=== PATIENT | male | born 1985 | race Caucasian/White ===

== ENCOUNTER 2017-09-05 09:16 | Day surgery (SDC) | payer BC ==
[~2017-09-05 09:16] MED LIST: Buffered Lidocaine 0.9% SYRIN* 5 ML/SYR SYRINGE INTRADERM ONE
[2017-09-05] MEDS ORDERED: ceFAZolin 2 GM PREMIX (*) 2 GM/50 ML BAG IVPB ONE (09:32)
[2017-09-05] MEDS ORDERED: fentaNYL* 50 MCG/ML 2 ML VIAL (100 MCG VIAL) ONE (10:54)
[2017-09-05] MEDS ORDERED: Midazolam* 1 MG/ML 5 ML VIAL (5 MG) ONE (10:55)
[2017-09-05] MEDS ORDERED: Lidocaine 1% MPF wEPI 200,000* 30 ML SDV ONE (10:55)
[2017-09-05 12:02] VITALS: BP 113/68
== END 2017-09-05 12:02 | disposition home or self-care (01) ==
LOC: OREAST 09:16
PROVIDERS: ATTEND Plastic Surgery
DX: D17.9 Benign lipomatous neoplasm, unspecified (principal)
CPT/HCPCS: 88304; J0690; J2001; J2250; J3010

== ENCOUNTER 2017-11-16 11:43 | Emergency (ER) | payer BC ==
[2017-11-16 12:41] VITALS: BP 121/78
--- NOTE | 2017-11-16 14:06 | UC ---
Throat Pain/Nasal Godfrey HPI - HPI Summary HPI Summary: Patient presents to the with CC of sore throat, neck fullness and pain and feeling congested x 1 month. He endorses sick contacts. Family members with strep. He denies fevers, sweats or chills. He denies any other chest pain, SOB or N/V/C/D. Otherwise healthy. Takes no medications. - History of Current Complaint Chief Complaint: UCGeneralIllness Stated Complaint: S.T Time Seen by Provider: 11/16/17 12:50 Hx Obtained From: Patient Onset/Duration: Sudden Onset Severity: Moderate Pain Intensity: 5 Pain Scale Used: 0-10 Numeric Associated Signs & Symptoms: Positive: Dysphagia - Epiglottits Risk Factors Epiglottis Risk Factors: Negative - Allergies/Home Medications Allergies/Adverse Reactions: Allergies Allergy/AdvReac Type Severity Reaction Status Date / Time No Known Allergies Allergy Verified 11/16/17 12:41 Home Medications: Home Medications Ibuprofen TAB* [Advil TAB*] 600 mg PO Q6HR PRN 11/16/17 [History Confirmed 11/16] Psllnhvglwkyg-Inubcqdtro-Mzymc [VICKS DAYQUIL/NYQUIL COLD (Liquid)] 20 ml PO BEDTIME PRN 11/16/17 [History Confirmed 11/16/17] PMH/Surg Hx/FS Hx/Imm Hx Previously Healthy: Yes - Surgical History Surgical History: None Surgery Procedure, Year, and Place: Vasectomy 11/08/17; Cyst removed right forehead - Family History Known Family History: Positive: Unknown - Social History Occupation: Employed Full-time Alcohol Use: Occasionally Substance Use Type: None Smoking Status (MU): Never Smoked Tobacco - Immunization History Most Recent Influenza Vaccination: NOT UTD Review of Systems Constitutional: Negative Skin: Negative ENT: Sore Throat Respiratory: Negative Cardiovascular: Negative Motor: Negative Neurovascular: Negative Musculoskeletal: Negative Neurological: Negative Is Patient Immunocompromised?: No All Other Systems Reviewed And Are Negative: Yes Physical Exam Triage Information Reviewed: Yes Appearance: Well-Appearing, Well-Nourished Vital Signs: Initial Vital Signs Temp 98.5 F 11/16/17 12:37 Pulse 81 11/16/17 12:37 Resp 16 11/16/17 12:37 BP 121/78 11/16/17 12:37 Pulse Ox 100 12/30/17 12:37 Vital Signs Reviewed: Yes Eye Exam: Normal Eyes: Positive: Conjunctiva Clear ENT: Positive: Hearing grossly normal, Pharyngeal erythema, TMs normal, Tonsillar swelling, Tonsillar exudate, Uvula midline. Negative: Pharynx normal , Nasal congestion, Nasal drainage, TM bulging, TM dull, TM red, Trismus, Muffled voice, Hoarse voice, Dental tenderness, Sinus tenderness Neck exam: Normal Neck: Positive: Supple, Enlarged Nodes @ - cervical LN bilaterally Respiratory: Positive: Chest non-tender, Lungs clear Cardiovascular Exam: Normal Cardiovascular: Positive: RRR Musculoskeletal Exam: Normal Musculoskeletal: Positive: Strength Intact Neurological Exam: Normal Neurological: Positive: Alert Psychological: Positive: Normal Response To Family Skin Exam: Normal Throat Pain/Nasal Course/Dx - Course Course Of Treatment: Strep +. Patient is given penicillin. Encouraged tylenol for any fevers or aches. Precautions and return to activities given. - Differential Dx/Diagnosis Provider Diagnoses: Strep throat Discharge - Discharge Plan Condition: Stable Disposition: HOME Prescriptions: Penicillin VK 500 MG TAB(NF) [Penicillin VK 500 mg Tab(NF)] 500 mg PO BID #20 tab MDD 4 Patient Education Materials: Strep Throat (ED) Referrals: Dillan Ayala NP [Primary Care Provider] - Additional Instructions: Dx: Strep Throat You will need antibiotic medicine to treat your strep throat. Please take the antibiotic as directed. You should feel better within 2 to 3 days after you start antibiotics. You may return to work or school 24 hours after you start antibiotics. If you have any questions about your medications, please do no hesitate to call or talk with your pharmacist. How can I manage my symptoms? Use lozenges, ice, soft foods, or popsicles to soothe your throat. Drink juice, milk shakes, or soup if your throat is too sore to eat solid food. Drinking liquids can also help prevent dehydration. Gargle with salt water. Mix teaspoon salt in a 1 cup of warm water and gargle. This may help reduce swelling in your throat. Do not smoke. Nicotine and other chemicals in cigarettes and cigars can cause lung damage and make your symptoms worse. Ask your healthcare provider for information if you currently smoke and need help to quit. E-cigarettes or smokeless tobacco still contain nicotine. Talk to your healthcare provider before you use these products. How do I prevent the spread of strep throat? Wash your hands often. Use soap and water. Wash your hands after you use the bathroom, change a child's diapers, or sneeze. Wash your hands before you prepare or eat food. Do not share food or drinks. Replace your toothbrush after you have taken antibiotics for 24 hours.
== END 2017-11-16 13:25 | disposition home or self-care (01) ==
LOC: UCEAST 11:43
DX: J02.0 Streptococcal pharyngitis (principal)
CPT/HCPCS: 87651; 99212; G0463

== ENCOUNTER 2018-02-10 06:14 | Day surgery (SDC) | payer BC ==
--- NOTE | 2018-02-06 22:02 | HP ---
CC: VERENICE Jay * ADMITTING HISTORY AND PHYSICAL: DATE OF ADMISSION: 02/10/18 ADMITTING DIAGNOSIS: Left renal calculus. PLANNED PROCEDURE: Shockwave lithotripsy of left renal calculus. SURGEON: Trever Cruz MD HISTORY OF PRESENT ILLNESS: David Garcia is a 32-year-old gentleman who had been evaluated and noted on an ultrasound to have a 9 mm calculus in the lower pole of the left kidney. He desires treatment of the same and is now being bought in for shockwave lithotripsy of the left renal calculus. PAST MEDICAL HISTORY: Unremarkable. PAST SURGICAL HISTORY: Significant for removal of a lipoma from the forehead. MEDICATIONS ON ADMISSION: None. ALLERGIES: No known drug allergies. FAMILY HISTORY: Negative for stones. REVIEW OF SYSTEMS: He is otherwise in excellent health. There is no history of diabetes mellitus or any other major systemic illness. He denies any chest pain or shortness of breath. PHYSICAL EXAMINATION GENERAL: Reveals a pleasant healthy-appearing young gentleman. VITAL SIGNS: Blood pressure is 120/70, pulse 68 per minute, oxygen saturation 99% on room air. LUNGS: Clear bilaterally. CARDIOVASCULAR: Regular rate and rhythm. S1, S2. ABDOMEN: Soft without masses. IMPRESSION: A 32-year-old gentleman with a 9 mm calculus in the lower pole of the left kidney. I have discussed the procedure of shockwave lithotripsy in detail including possible risks of bleeding, infection, and obstructing fragment. PLAN: Shockwave lithotripsy of left renal calculus. [id number]/[facility] #: [id number] [facility]
[~2018-02-10 06:14] MED LIST changes: +Dexamethasone IV* 4 MG/ML 1 ML (4 MG) IV SLOW PU ONE; +Famotidine IV* 10 MG/ML 2 ML (20 mg) IV ONE
[2018-02-10] MEDS ORDERED: cefTRIAXone(*) 2 GM ADDV.VIAL IVPB ONE (06:50)
[2018-02-10] MEDS ORDERED: Buffered Lidocaine 0.9% SYRIN* 5 ML/SYR SYRINGE ONE (06:50)
[2018-02-10] MEDS ORDERED: Famotidine IV* 10 MG/ML 2 ML (20 mg) ONE (06:50)
[2018-02-10] MEDS ORDERED: Dexamethasone IV* 4 MG/ML 1 ML (4 MG) ONE (06:50)
[2018-02-10] MEDS ORDERED: fentaNYL* 50 MCG/ML 2 ML VIAL (100 MCG VIAL) ONE (07:18)
[2018-02-10] MEDS ORDERED: Ondansetron INJ* 2 MG/ML VIAL ONE (07:23)
[2018-02-10] MEDS ORDERED: Midazolam* 1 MG/ML 2 ML VIAL (2 MG) ONE (07:23)
[2018-02-10] MEDS ORDERED: Propofol* 10 MG/ML 20 ML BTL IV PUSH ONE (07:23)
[2018-02-10] MEDS ORDERED: Furosemide IV* 10 MG/ML 2 ML VIAL (20 MG) ONE (07:39)
[2018-02-10] MEDS ORDERED: DiMENhydriNATE IV* 50 MG/ML VIAL IV PUSH PRN (08:12)
[2018-02-10] MEDS ORDERED: Naloxone* 0.4 MG/ML 1 ML VIAL IV PRN (08:12)
[2018-02-10] MEDS ORDERED: fentaNYL* 50 MCG/ML 2 ML VIAL (100 MCG VIAL) IV PRN (08:12)
--- NOTE | 2018-02-10 08:15 | RAD ---
HISTORY: Shockwave lithotripsy COMPARISONS: January 24, 2018 at 1:08 PM VIEWS: Frontal views of the abdomen. FINDINGS: BOWEL: There is a nonobstructive bowel gas pattern. There is a moderate amount of stool within the colon. CALCULI: Again noted is a calculus of the lower pole of the left renal parenchymal shadow measuring 0.7 cm in size. BONES AND SOFT TISSUES: There are no osseous abnormalities. OTHER FINDINGS: None . IMPRESSION: STABLE LEFT NEPHROLITHIASIS.
[2018-02-10 09:15] VITALS: BP 116/66
--- NOTE | 2018-02-10 10:04 | RAD ---
INDICATION: Lithotripsy COMPARISON: February 10, 2018 TECHNIQUE: A single view of the abdomen is submitted. FINDINGS: Bones: There are no acute bony findings. Soft tissues: The soft tissues appear normal. The psoas margins are sharp. Bowel gas pattern: Normal Calcifications: There is interval fragmentation of the left renal calculus. Other: None IMPRESSION: INTERVAL FRAGMENTATION OF THE LEFT RENAL CALCULUS
--- NOTE | 2018-02-10 12:34 | OP ---
CC: VERENICE Jay * DATE OF OPERATION: 02/10/18 - [facility] DATE OF : 87 SURGEON: Trever Cruz MD ANESTHESIOLOGIST: Dr. Macias. ANESTHESIA: General. PRE-OP DIAGNOSIS: Left renal calculus. POST-OP DIAGNOSIS: Left renal calculus. OPERATIVE PROCEDURE: Shockwave lithotripsy of left renal calculus. COMPLICATIONS: None. POSTOPERATIVE CONDITION: Stable. INDICATION: David Garcia is a 32-year-old gentleman who was evaluated and noted to have approximately 8 to 9 mm calculus in the left kidney. He desires treatment of the same and after thorough discussion of the procedure and risks, is being brought in for shockwave lithotripsy of the left renal calculus. DESCRIPTION OF PROCEDURE: After induction of general anesthesia the patient was placed on the lithotripsy table in supine position. The calculus was identified using fluoroscopy. Shockwave lithotripsy was commenced at a rate of 60 shocks per minute. After the initial 300 shocks, there was a pause in lithotripsy for several minutes in an effort to minimize any potential trauma to the kidney. Lithotripsy was then resumed and periodic imaging confirmed adequate localization and fragmentation. A total of 2400 shocks were administered. The patient tolerated the procedure satisfactorily and was transferred back to the recovery area in stable condition. [id number]/[facility] #: [id number] MTDD
== END 2018-02-10 09:49 | disposition home or self-care (01) ==
LOC: OR 06:14
PROVIDERS: ATTEND Urology
DX: N20.0 Calculus of kidney (principal)
CPT/HCPCS: 74018; J0696; J1100; J1940; J2250; J2405; J2704; J3010

== ENCOUNTER 2018-08-14 10:05 | Emergency (ER) | payer BC ==
[2018-08-14 10:16] VITALS: BP 132/83
--- NOTE | 2018-08-14 10:54 | UC ---
Throat Pain/Nasal Godfrey HPI - HPI Summary HPI Summary: Patient is a 32 y/o male who presents to the c/o sore throat. He states the sore throat began last night, and is described as a 2/10 in severity. Patient notes mild pain with swallowing. Patient denies any ear pain, sinus pain, post- nasal drip, fever, chills, rash, difficulty swallowing, or SOB. He has a history of strep. He has not taken any OTC medications. Patient ate breakfast this morning. Patients medication reviewed this visit. - History of Current Complaint Chief Complaint: UCGeneralIllness Stated Complaint: SORE THROAT Time Seen by Provider: 08/14/18 10:34 Hx Obtained From: Patient Onset/Duration: Gradual Onset, Lasting Hours - Last night, Still Present Severity: Mild Pain Intensity: 2 Pain Scale Used: 0-10 Numeric Cough: None Associated Signs & Symptoms: Positive: Negative Related History: Other (Noted In Comments) - Hx of strep throat - Allergies/Home Medications Allergies/Adverse Reactions: Allergies Allergy/AdvReac Type Severity Reaction Status Date / Time No Known Allergies Allergy Verified 08/14/18 10:11 PMH/Surg Hx/FS Hx/Imm Hx Previously Healthy: Yes Endocrine History: Other Other Endocrine History: NEGATIVE: DM GI/ History: Kidney Stones - Surgical History Surgical History: Yes Surgery Procedure, Year, and Place: Vasectomy 11/08/17; Cyst removed right forehead - Family History Known Family History: Positive: Cardiac Disease, Diabetes, Other - Skin CA - Social History Occupation: Employed Full-time Lives: With Family Alcohol Use: Rare Substance Use Type: None Smoking Status (MU): Never Smoked Tobacco Have You Smoked in the Last Year: No - Immunization History Most Recent Influenza Vaccination: NOT UTD Review of Systems Constitutional: Negative ENT: Negative - ear pain, sinus pain, post-nasal drip, Sore Throat - Pain with swallowing Respiratory: Negative - SOB All Other Systems Reviewed And Are Negative: Yes Physical Exam - Summary Physical Exam Summary: Vital Signs Reviewed: Yes A+Ox3, no distress Eyes: Conjunctiva Clear, MUSTAPHA. EOM intact and full ENT: Hearing grossly normal TM x 2 clear, turbinates mildly boggy, no PND, mmoist, uvula midline, mild exudate, no erythema Neck: Positive: Supple + submandibular LA b/l Respiratory: Positive: No respiratory distress, No accessory muscle use + CTA throughout no w/r Cardiovascular: RRR nl s1, s2 no m/r CBT <2 sec abd soft + BS nt/nd no guarding, no distension Musculoskeletal Exam: JOHNSON x 4 without difficulty Strength Intact, ROM Intact Neurological: Positive: Alert, + sensation throughout Psychological: Positive: Normal Response To Family Skin: Positive: no rash, no ecchymosis Triage Information Reviewed: Yes Vital Signs: Initial Vital Signs Temp 97.6 F 08/14/18 10:12 Pulse 65 08/14/18 10:12 Resp 16 08/14/18 10:12 BP 132/83 08/14/18 10:12 Pulse Ox 100 08/14/18 10:12 Throat Pain/Nasal Course/Dx - Course Course Of Treatment: pt presents with sore throat x 3 days. no fever, chills. Pt with painful swallowing. No drooling. on exam, + erythema, no exudate. strep pos. abx. hydrate. motrin/apap. secretion precaution - Differential Dx/Diagnosis Provider Diagnoses: strep pharyngitis Discharge - Sign-Out/Discharge Documenting (check all that apply): Patient Departure - Discharge All imaging exams completed and their final reports reviewed: No Studies - Discharge Plan Condition: Stable Disposition: HOME Prescriptions: Amoxicillin PO (*) [Amoxicillin 500 MG CAP*] 500 mg PO Q12H #20 cap Patient Education Materials: Strep Throat (ED) Referrals: Dillan Ayala, [employer]IST [Primary Care Provider] - Additional Instructions: - Okay to alternate ibuprofen (Advil, Motrin) 600mg and Tylenol every 3 hours for pain. Take with food. Do NOT take for more than 4-5 days - Okay to gargle and spit every 4 hours as needed for pain - Stay well hydrated - frequent sips of cold fluids will be soothing to your throat (popsicles, jello, ice cream, ice water). Avoid excess caffeine until your symptoms have resolved. - Do not share eating, drinking utensils. Throw out your toothbrush when your symptoms resolved. Throat infections are spread by oral secretions - do not share eating or drinking utensils until you symptoms are resolved. Clean items that may get your secretions such as cell phones, ipads, computer mouse, television remotes AFter you have been on antibiotics for 2 days, change your toothbrush and your pillowcase. - Contact your doctor to arrange a follow-up appointment as needed - Billing Disposition and Condition Condition: STABLE Disposition: Home - Attestation Statements Document Initiated by Carlos: Yes Documenting Scribe: Wendie Denise Provider For Whom Carlos is Documenting (Include Credential): Tonya Duffy MD Scribe Attestation: Wendie Parsons, scribed for Tonya Duffy MD on 08/18/18 at 1604. Scribe Documentation Reviewed: Yes Provider Attestation: The documentation as recorded by the scribeWendie accurately reflects the service I personally performed and the decisions made by me, Tonya Duffy MD
== END 2018-08-14 11:00 | disposition home or self-care (01) ==
LOC: UCEAST 10:05
DX: J02.0 Streptococcal pharyngitis (principal)
CPT/HCPCS: 87651; 99212; G0463